=== PATIENT | female | born 1990 | race Caucasian/White ===

== ENCOUNTER 2017-03-11 00:34 | Outpatient (CLI) | payer MEDICAID ==
[2017-03-11] MEDS ORDERED: ACETAMINOPHEN 500 MG TABLET PO ONE (01:13)
[2017-03-11 01:17] VITALS: BMI 21.9
== END 2017-03-11 03:14 | disposition home or self-care (01) ==
LOC: FBCOUT 00:34 → FBC 00:34 → FBCOUT 03:14
PROVIDERS: ATTEND Family Medicine
DX: O26.899 Other specified pregnancy related conditions, unspecified trimester (principal); R10.9 Unspecified abdominal pain; Z3A.00 Weeks of gestation of pregnancy not specified
CPT/HCPCS: 59025; A9270; G0463

== ENCOUNTER 2017-03-13 00:50 | Outpatient (CLI) | payer MEDICAID ==
[2017-03-13 01:37] LABS: URINE BILIRUBIN NEGATIVE (NEGATIVE); URINE BLOOD NEGATIVE (NEGATIVE); URINE GLUCOSE (UA) NEGATIVE (NEGATIVE); URINE LEUKOCYTE ESTERASE NEGATIVE (NEGATIVE); URINE NITRITE NEGATIVE (NEGATIVE); URINE PROTEIN TRACE (NEGATIVE); URINE UROBILINOGEN NORMAL (0-1 mg/dl)
[2017-03-13 01:38] LABS: URINE APPEARANCE CLEAR; URINE COLOR YELLOW
[2017-03-13 03:00] VITALS: BMI 24.7
== END 2017-03-13 03:28 | disposition home or self-care (01) ==
LOC: FBC 00:50 → FBCOUT 00:50
PROVIDERS: ATTEND Family Medicine
DX: O47.9 False labor, unspecified (principal); M54.9 Dorsalgia, unspecified; Z3A.00 Weeks of gestation of pregnancy not specified
CPT/HCPCS: 81003; 59025; G0463